=== PATIENT | female | born 1975 | race Caucasian/White ===

== ENCOUNTER → 2016-10-06 | Outpatient (CLI) | payer BC ==
[2014-07-28 14:40] VITALS: BP 128/82
--- NOTE | 2016-10-06 15:37 | RAD ---
Right lower extremity venous ultrasound, 10/06/2016 : History: Right leg pain and redness Duplex evaluation including grayscale, color flow and spectral Doppler analysis was performed. The femoral and popliteal veins show no filling defects to suggest DVT. The visualized deep veins in the calf are unremarkable. There is a single thrombosed superficial vein in the right calf in the area of clinical concern. IMPRESSION: 1. There is no sonographic evidence of deep vein thrombosis in the right lower extremity 2. Superficial thrombophlebitis in the right calf.
== END | disposition home or self-care (01) ==
LOC: US 14:00
PROVIDERS: ATTEND Nurse Practitioner Family
DX: I80.01 Phlebitis and thrombophlebitis of superficial vessels of right lower extremity (principal); I83.893 Varicose veins of bilateral lower extremities with other complications; J30.1 Allergic rhinitis due to pollen; E78.5 Hyperlipidemia, unspecified; M25.50 Pain in unspecified joint; M25.80 Other specified joint disorders, unspecified joint; F17.200 Nicotine dependence, unspecified, uncomplicated
CPT/HCPCS: 93971

== ENCOUNTER 2017-09-19 16:05 | Inpatient (IN) | payer BC ==
[~2017-09-19] VITALS: Ht 165.1 cm; Wt 90.7 kg
[2017-09-19] MEDS ORDERED: ONDANSETRON ODT 4 MG TAB.RAPDIS PO PRN (16:45)
[2017-09-19 18:37] VITALS: BP 140/84
[2017-09-19] MEDS: KETOROLAC 15 MG/ML VIAL. IV PRN (18:45)
[2017-09-19] MEDS: IV NORMAL SALINE 1,000ML 1,000 ML IV SCH ×2 (18:46→22:15)
[2017-09-19 19:13] LABS: BASO # 0.1 x10^3/uL (0.0-0.2); BASO % 1 % (0-3); EOS # 0.3 x10^3/uL (0.0-0.7); EOS % 2 % (0-3); HEMATOCRIT 40.4 % (36.0-47.0); HEMOGLOBIN 13.9 g/dL (12.0-15.5); LYMPH % 38 % (24-48); MEAN CORPUSCULAR HEMOGLOBIN 31 pg (25-35); MEAN CORPUSCULAR HGB CONC 35 g/dL (31-37); MEAN CORPUSCULAR VOLUME 88 fL (79-100); MONO # 0.7 x10^3/uL (0.0-1.1); MONO % 7 % (0-9); NEUT # 5.6 x10^3uL (1.8-7.7); NEUT % 53 % (31-73); PLATELET COUNT 323 x10^3/uL (140-400); RED BLOOD COUNT 4.57 x10^6/uL (3.50-5.40); RED CELL DISTRIBUTION WIDTH 12.7 % (11.5-14.5); WHITE BLOOD COUNT 10.7 x10^3/uL (4.0-11.0)
[2017-09-19 19:22] LABS: ALBUMIN 3.9 g/dL (3.4-5.0); ALBUMIN/GLOBULIN RATIO 1.1 (1.0-1.7); CALCIUM 8.5 mg/dL (8.5-10.1); CREATININE 0.7 mg/dL (0.6-1.0); GFR 90.9; POTASSIUM 3.5 mmol/L (3.5-5.1); TOTAL BILIRUBIN 0.5 mg/dL (0.2-1.0); TOTAL PROTEIN 7.3 g/dL (6.4-8.2)
[2017-09-19] MEDS: CIPROFLOXACIN 400MG PREMIX 200 ML IV SCH (19:30)
[2017-09-19] MEDS ORDERED: VARE1TAB20 PO (20:32)
[2017-09-19] MEDS ORDERED: FLUT9.9S NS (20:32)
[2017-09-19] MEDS ORDERED: CETI10CA PO (20:32)
[2017-09-19] MEDS ORDERED: ENOXAPARIN 30 MG/0.3 ML SYRINGE. SQ SCH (21:00)
[2017-09-19] MEDS ORDERED: CIPROFLOXACIN 400MG PREMIX 200 ML IV SCH (21:00)
[2017-09-19] MEDS: ENOXAPARIN 40 MG/0.4 ML SYRINGE. SQ SCH (21:00)
[2017-09-19] MEDS: LACTOBACILLUS RHAMNOSUS GG 1 CAPSULE. PO SCH (22:14)
[2017-09-19] MEDS: ONDANSETRON PF 4 MG/2 ML VIAL. IV PRN (22:25)
[2017-09-19 22:29] VITALS: BP 114/72
[2017-09-20] MEDS: KETOROLAC 15 MG/ML VIAL. IV PRN ×4 (04:05→22:57)
[2017-09-20 04:30] LABS: BACTERIA,URINE 0 /HPF (0-FEW); BILIRUBIN,URINE NEG (NEG); CLARITY,URINE CLEAR; COLOR,URINE YELLOW; GLUCOSE,URINE NEG (NEG); NITRITE,URINE NEG (NEG); RBC,URINE 0 /HPF (0-2); SQUAMOUS EPITHELIAL CELL,UR FEW /LPF; UROBILINOGEN,URINE 0.2 mg/dL (0.2 mg/dL); WBC,URINE OCC /HPF (0-4)
[2017-09-20] MEDS: CIPROFLOXACIN 400MG PREMIX 200 ML IV SCH ×2 (04:56→17:57)
[2017-09-20 05:00] VITALS: BP 109/67
[2017-09-20] MEDS: ONDANSETRON PF 4 MG/2 ML VIAL. IV PRN (05:57)
[2017-09-20 06:55] LABS: ALBUMIN 3.3 g/dL (3.4-5.0); CALCIUM 7.9 mg/dL (8.5-10.1); CREATININE 0.8 mg/dL (0.6-1.0); GFR 77.9; POTASSIUM 3.8 mmol/L (3.5-5.1); TOTAL BILIRUBIN 0.5 mg/dL (0.2-1.0); TOTAL PROTEIN 6.7 g/dL (6.4-8.2)
[2017-09-20 07:06] LABS: BASO # 0.1 x10^3/uL (0.0-0.2); BASO % 1 % (0-3); EOS # 0.3 x10^3/uL (0.0-0.7); EOS % 3 % (0-3); HEMATOCRIT 39.5 % (36.0-47.0); HEMOGLOBIN 13.6 g/dL (12.0-15.5); LYMPH # 3.1 x10^3/uL (1.0-4.8); LYMPH % 30 % (24-48); MEAN CORPUSCULAR HEMOGLOBIN 31 pg (25-35); MEAN CORPUSCULAR HGB CONC 34 g/dL (31-37); MEAN CORPUSCULAR VOLUME 90 fL (79-100); MONO # 0.8 x10^3/uL (0.0-1.1); MONO % 7 % (0-9); NEUT # 6.1 x10^3uL (1.8-7.7); NEUT % 59 % (31-73); PLATELET COUNT 294 x10^3/uL (140-400); RED BLOOD COUNT 4.41 x10^6/uL (3.50-5.40); WHITE BLOOD COUNT 10.4 x10^3/uL (4.0-11.0)
[2017-09-20] MEDS: LACTOBACILLUS RHAMNOSUS GG 1 CAPSULE. PO SCH ×2 (08:38→21:24)
[2017-09-20 11:10] VITALS: BP 122/72
[2017-09-20 15:00] VITALS: BP 127/88
[2017-09-20 19:25] VITALS: BP 128/82
[2017-09-20] MEDS: ENOXAPARIN 40 MG/0.4 ML SYRINGE. SQ SCH (21:00)
[2017-09-20] MEDS ORDERED: CETIRIZINE HCL 10 MG TABLET PO SCH (21:00)
[2017-09-20] MEDS ORDERED: FLUTICASONE 50MCG/NASAL SPRAY 16GM BOTTLE. NS SCH (21:00)
--- NOTE | 2017-09-20 21:02 | PN ---
DATE: 09/20/2017 SUBJECTIVE: The patient in with diverticulitis. The patient is resting fairly comfortably, making fairly good progress. The patient had a CT abdomen and pelvis yesterday. She had acute diverticulitis. She did have some pain in her right lower quadrant, but reviewing the CT scan, normal appendix was visualized there. In any case, she is making good progress. PHYSICAL EXAMINATION: VITAL SIGNS: Blood pressure 110/70, respiratory rate 18, pulse 80. Pulse has come down from the 90s and 80. LUNGS: Clear. CARDIOVASCULAR: Regular sinus rhythm. ABDOMEN: Soft. Definite tenderness in that right and left lower quadrant area, but improved. IMPRESSION AND PLAN: Acute diverticulitis, acute abdominal pain. Continue with IV antibiotic therapy for now and continue to mobilize. PRERNA SALGUERO MD DR: OVIDIO/davon JOB#: [id number] / [id number]
[2017-09-21 04:20] VITALS: BP 103/63
[2017-09-21] MEDS: CIPROFLOXACIN 400MG PREMIX 200 ML IV SCH (04:27)
[2017-09-21] MEDS: KETOROLAC 15 MG/ML VIAL. IV PRN (04:28)
[2017-09-21] MEDS: ONDANSETRON PF 4 MG/2 ML VIAL. IV PRN (04:28)
[2017-09-21] MEDS ORDERED: METR500T PO (08:23)
[2017-09-21] MEDS ORDERED: CIPR500T94 PO (08:23)
[2017-09-21] MEDS ORDERED: ONDA4TAB12 PO (08:23)
== END 2017-09-21 10:10 | disposition home or self-care (01) | DRG 690 ==
LOC: 1 SOUTH 16:38
PROVIDERS: ADMIT Family Medicine; ATTEND Family Medicine
DX: N10 Acute pyelonephritis (principal); K57.32 Diverticulitis of large intestine without perforation or abscess without bleeding; F17.210 Nicotine dependence, cigarettes, uncomplicated; Z88.8 Allergy status to other drugs, medicaments and biological substances; Z87.442 Personal history of urinary calculi; Z79.899 Other long term (current) drug therapy; Z90.710 Acquired absence of both cervix and uterus; Z83.3 Family history of diabetes mellitus; Z82.49 Family history of ischemic heart disease and other diseases of the circulatory system
CPT/HCPCS: 36415; 74176; 80053; 81001; 84443; 85025; 87040; J0744; J1885; J2405; J3490; J7030

== ENCOUNTER → 2017-09-19 | Outpatient (CLI) | payer BC ==
[2014-07-28 14:40] VITALS: BP 128/82
[~2017-09-19] MED LIST: CETI10CA PO; CIPR500T94 PO; FLUT9.9S NS; METR500T PO; ONDA4TAB12 PO; VARE1TAB20 PO
--- NOTE | 2017-09-19 15:42 | RAD ---
PQRS Compliance Statement: One or more of the following individualized dose reduction techniques were utilized for this examination: 1. Automated exposure control 2. Adjustment of the mA and/or kV according to patient size 3. Use of iterative reconstruction technique CT abdomen/pelvis without contrast 09/19/2017 3:00 PM INDICATION: Right upper quadrant abdominal pain and hematuria. COMPARISON: CT abdomen/pelvis July 28, 2014 TECHNIQUE: Multiple axial CT images of the abdomen and pelvis were obtained without intravenous contrast. Coronal and sagittal reformats are provided. FINDINGS: Visualized portions of the lung bases are clear. Heart size is within normal limits. Evaluation of the solid abdominal viscera is limited by lack of intravenous contrast. No suspicious hepatic masses are identified. There is geographic hepatic steatosis. Spleen, bilateral adrenal glands, and pancreas are normal in appearance. Gallbladder is present without adjacent inflammatory changes. The abdominal aorta is normal in course and caliber. There are no pathologically enlarged lymph nodes in the abdomen and pelvis. There is no abdominal free fluid. There is no free intraperitoneal air. The kidneys are relatively symmetric in appearance. There is no suspicious renal mass within the limitations of a noncontrast examination. There is no hydronephrosis. There are no calculi within the kidneys, ureters or urinary bladder. There is moderate colonic diverticulosis with inflammatory changes surrounding diverticula in the sigmoid colon compatible with with diverticulitis. There is no microperforation or peridiverticular abscess. Small large bowel are normal in caliber without evidence for bowel obstruction. Normal appendix is visualized. Mild pericystic inflammatory changes along the bladder dome may be secondary to adjacent inflammatory changes. No suspicious pelvic masses are identified. No suspicious osseous lesion is identified. IMPRESSION: 1. Findings are compatible with acute sigmoid diverticulitis. No evidence for peridiverticular abscess or free intraperitoneal air. 2. Mild inflammatory changes along the bladder dome may be secondary to adjacent sigmoid colon inflammation. Correlation with urinalysis is recommended. 3. Geographic hepatic steatosis. Critical results were discussed with Dr. Koch at 3:35 PM on 09/19/[address] Gabriel. Electronically signed by: Mouna Gabriel MD (09/19/2017 3:39 PM) [id number]
== END | disposition home or self-care (01) ==
LOC: CT 15:09
PROVIDERS: ATTEND Nurse Practitioner Family
DX: K76.0 Fatty (change of) liver, not elsewhere classified (principal); E78.5 Hyperlipidemia, unspecified
CPT/HCPCS: 74176

== ENCOUNTER → 2018-08-06 | Outpatient (CLI) | payer BC, OTHER ==
--- NOTE | 2018-08-06 08:42 | RAD ---
PQRS Compliance Statement: One or more of the following individualized dose reduction techniques were utilized for this examination: 1. Automated exposure control 2. Adjustment of the mA and/or kV according to patient size 3. Use of iterative reconstruction technique CT MAXILLOFACIAL WO CONTRAST Clinical Indication: Chronic sinus infections, sinusitis. Facial pressure and discomfort. Multiple HX surgery to sinuses. Comparison: None. TECHNIQUE: Helical CT imaging of the paranasal sinuses is performed without IV contrast. Findings: Moderate mucosal thickening of the bilateral maxillary sinuses. There is an air-fluid level in the right maxillary sinus. The sphenoid sinuses are clear. Ethmoid and frontal sinuses are clear. The bony nasal septum is midline. There is right inferior turbinectomy. The ostiomeatal complexes are patent. Mastoid air cells are aerated. No acute facial bone abnormality. Temporomandibular joints are intact. Visualized brain without midline shift or mass effect. The globes and orbits are intact. IMPRESSION: 1. Air-fluid level in the right maxillary sinus suggestive of acute sinusitis. 2. The ostiomeatal complexes are patent. 3. Right inferior turbinectomy. Electronically signed by: Emeka Hernandes MD (08/06/2018 8:39 AM) [id number]
== END | disposition home or self-care (01) ==
LOC: CT 07:48
PROVIDERS: ATTEND Nurse Practitioner Family
DX: J32.8 Other chronic sinusitis (principal)
CPT/HCPCS: 70486

== ENCOUNTER → 2018-08-13 | Outpatient (CLI) | payer OTHER ==
--- NOTE | 2018-08-13 11:11 | RAD ---
CT HEAD INDICATION: severe headache since blood pressure was high last night COMPARISON: None Available. Exposure: One or more of the following individualized dose reduction techniques were utilized for this examination: 1. Automated exposure control 2. Adjustment of the mA and/or kV according to patient size 3. Use of iterative reconstruction technique TECHNIQUE: 5 mm contiguous axial images were obtained from the skull base to the vertex in both bone and soft tissue algorithm. FINDINGS: No evidence of acute intracranial hemorrhage. No extra-axial fluid collections. No mass effect or midline shift. Ventricular size is appropriate. Basal cisterns are patent. No fractures identified.Barber-white differentiation is preserved.Globes and orbits are within normal limits. Air fluid levels identified in the bilateral maxillary sinuses. IMPRESSION: 1. No acute intracranial findings. 2. Bilateral maxillary sinus disease. Electronically signed by: Graham Sotelo MD (08/13/2018 11:08 AM) [id number]
== END | disposition home or self-care (01) ==
LOC: CT 10:48
PROVIDERS: ATTEND Physician Assistant
DX: J32.0 Chronic maxillary sinusitis (principal); I10 Essential (primary) hypertension; H53.8 Other visual disturbances; R51 Headache
CPT/HCPCS: 70450